=== PATIENT | female | born 1985 | race Caucasian/White ===

== ENCOUNTER 2022-07-29 12:58 | Inpatient (IN) | payer MEDICAID ==
[~2022-07-29] VITALS: Ht 152.4 cm; Wt 67.1 kg
[2022-07-29] MEDS: IBUPROFEN 600 MG TABLET PO SCH
[2022-07-29] MEDS ORDERED: LR 1,000 ML IV SCH (13:45)
[2022-07-29] MEDS ORDERED: OXYTOCIN/0.9 % SODIUM CHLORIDE 1,000 ML IV SCH ×2 (13:45→18:30)
[2022-07-29] MEDS ORDERED: NALBUPHINE HCL 10 MG/ML AMP IVP PRN (13:45)
[2022-07-29] MEDS ORDERED: TERBUTALINE SULFATE 1 MG/ML VIAL SUBCUT ONE (13:45)
[2022-07-29] MEDS ORDERED: LR 1,000 ML IV ONE (13:45)
[2022-07-29 14:46] LABS: BASOPHILS % (AUTO) 0.5 % (0.0-2.0); EOSINOPHILS % (AUTO) 0.4 % (0.0-4.0); HEMATOCRIT 33.8 % (36-48); HEMOGLOBIN 11.7 g/dL (12.0-16.0); LYMPHOCYTES # (AUTO) 1.2 K/uL (1.0-5.5); LYMPHOCYTES % (AUTO) 18.7 % (20.5-51.5); MEAN CORPUSCULAR HEMOGLOBIN 30 pg (27-31); MEAN CORPUSCULAR HGB CONC 35 % (32-36); MEAN CORPUSCULAR VOLUME 87 fL (79.0-98.0); MONOCYTES # (AUTO) 0.4 K/uL (0.0-1.0); MONOCYTES % (AUTO) 6.4 % (1.7-9.3); NEUTROPHILS # (AUTO) 4.8 K/uL (1.8-7.7); PLATELET COUNT (AUTO) 156 K/uL (130-430); RED CELL DISTRIBUTION WIDTH 13.5 % (9.0-15.0); WHITE BLOOD COUNT (AUTO) 6.5 K/uL (4.8-10.8)
[2022-07-29] MEDS ORDERED: LIDOCAINE PF 1% 30ML(POUR BTL) INJ ONE (17:53)
[2022-07-29] MEDS ORDERED: NALOXONE HCL 0.4 MG/ML AMP (NARCAN) ONE (17:53)
[2022-07-29] MEDS ORDERED: LIGHT MINERAL OIL 10 ML VIAL MC ONE (17:53)
[2022-07-29] MEDS ORDERED: OXYCODONE/ACETAMINOPHEN 5-325 TABLET PO PRN ×4 (18:00→18:30)
[2022-07-29] MEDS ORDERED: HYDROcodone/ACETAMIN 5-325 MG TAB (NORCO/ VICODIN) PO PRN ×2 (18:00→18:30)
[2022-07-29] MEDS ORDERED: WITCH HAZEL LEAF 1 MED.PAD MED.PAD TP PRN (18:30)
[2022-07-29] MEDS ORDERED: DERMOPLAST SPRAY TP PRN (18:30)
[2022-07-29] MEDS ORDERED: DIPHTH,PERTUSS(ACELL),TET VAC 0.5 ML VIAL (Tdap) I.M. PRN (18:30)
[2022-07-29] MEDS ORDERED: OXYTOCIN/0.9 % SODIUM CHLORIDE 1,000 ML IV ONE (18:30)
[2022-07-29] MEDS ORDERED: LANOLIN 7 GM OINT. TP PRN (18:30)
[2022-07-29] MEDS ORDERED: METHYLERGONOVINE MALEATE 0.2 MG TABLET PO PRN (18:30)
[2022-07-29] MEDS ORDERED: SENNOSIDES/DOCUSATE SODIUM 1 TAB TABLET(SENOKOT-S) PO SCH (21:00)
[2022-07-30] MEDS: IBUPROFEN 600 MG TABLET PO SCH ×3 (06:00→17:56)
[2022-07-30 07:13] LABS: BASOPHILS % (AUTO) 0.3 % (0.0-2.0); EOSINOPHILS % (AUTO) 0.4 % (0.0-4.0); HEMATOCRIT 34.2 % (36-48); HEMOGLOBIN 11.8 g/dL (12.0-16.0); LYMPHOCYTES # (AUTO) 1.7 K/uL (1.0-5.5); LYMPHOCYTES % (AUTO) 18.3 % (20.5-51.5); MEAN CORPUSCULAR HEMOGLOBIN 30 pg (27-31); MEAN CORPUSCULAR HGB CONC 35 % (32-36); MEAN CORPUSCULAR VOLUME 88 fL (79.0-98.0); MONOCYTES # (AUTO) 0.7 K/uL (0.0-1.0); MONOCYTES % (AUTO) 7.3 % (1.7-9.3); NEUTROPHILS # (AUTO) 6.6 K/uL (1.8-7.7); NEUTROPHILS % (AUTO) 73.7 % (40.0-70.0); PLATELET COUNT (AUTO) 135 K/uL (130-430); RED BLOOD CELL COUNT(AUTO) 3.91 MIL/uL (4.2-6.2); RED CELL DISTRIBUTION WIDTH 13.9 % (9.0-15.0)
[2022-07-30] MEDS ORDERED: DOCUSATE SODIUM 100 MG CAPSULE PO SCH (09:00)
[2022-07-30] MEDS ORDERED: FLU VACC QS2022-23(6MOS UP)/PF 0.5 ML/SYR SYRINGE I.M. ONE (18:00)
[2022-08-01 16:06] LABS: FTA-Ab (T PALLIDUM) Non Reactive (Non Reactive)
== END 2022-07-30 19:25 | disposition home or self-care (01) | DRG 560 ==
LOC: OBSVTOIN 12:58 → SPU 12:58
PROVIDERS: ADMIT Obstetrics & Gynecology; ATTEND Obstetrics & Gynecology
PROC: 10E0XZZ Delivery of Products of Conception, External Approach (ICD-10-PCS; principal; 2022-07-29)
PROC: 0HQ9XZZ Repair Perineum Skin, External Approach (ICD-10-PCS; 2022-07-29)
PROC: 0W8NXZZ Division of Female Perineum, External Approach (ICD-10-PCS; 2022-07-29)
DX: O48.0 Post-term pregnancy (principal); Z37.0 Single live birth; O70.0 First degree perineal laceration during delivery; Z3A.40 40 weeks gestation of pregnancy
CPT/HCPCS: 36415; 85025; 86592; 86780; 86886; 86900; 86901; 87536; 90715; J2001; J2310; J2590; J7120